=== PATIENT | male | born 1990 | race American Indian/Alaskan Native ===

== ENCOUNTER 2020-03-07 23:19 | Emergency (ER) | payer SELFPAY ==
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
[2020-03-08 01:00] LABS: Basophils # (Auto) 0.1 K/mm3 (0.0-0.1); Eosinophils # (Auto) 0.1 K/mm3 (0.0-0.4); Eosinophils % (Auto) 1.4 % (0.0-4.3); Hematocrit 35.9 % (35.5-45.6); Hemoglobin 12.2 gm/dl (11.8-15.2); Lymphocytes # (Auto) 3.1 K/mm3 (1.2-5.4); Lymphocytes % (Auto) 34.2 % (13.4-35.0); Mean Corpuscular HGB Conc 34 % (32-34); Mean Corpuscular Volume 93 fl (84-94); Monocytes # (Auto) 0.9 K/mm3 (0.0-0.8); Monocytes % (Auto) 9.4 % (0.0-7.3); Platelet Count 168 K/mm3 (140-440); Red Blood Count 3.86 M/mm3 (3.65-5.03); Red Cell Distribution Width 13.6 % (13.2-15.2)
[2020-03-08 01:10] LABS: Bilirubin,Urine NEG (Negative); Blood,Urine NEG (Negative); Color,Urine Yellow (Yellow); Protein,Urine <15 mg/dL mg/dL (Negative); WBC,Urine < 1.0 /HPF (0.0-6.0)
[2020-03-08 01:13] LABS: BUN/Creatinine Ratio 18; Blood Urea Nitrogen 22 mg/dL (9-20); Hemolysis Index 10
[2020-03-08 01:18] LABS: Amphetamine Screen,Urine PRESUMPTIVE NEGATIVE; Benzodiazepines Screen,Urine PRESUMPTIVE NEGATIVE; Cannabinoid Screen,Urine PRESUMPTIVE NEGATIVE; Cocaine Screen,Urine PRESUMPTIVE NEGATIVE; Methadone Screen,Urine PRESUMPTIVE NEGATIVE; Opiate Screen,Urine PRESUMPTIVE NEGATIVE
[2020-03-08] MEDS ORDERED: HALOPERIDOL LACTATE 5 MG/1 ML INJ ONE (03:55)
[2020-03-08] MEDS ORDERED: diphenhydrAMINE 50 MG/ML VIAL ONE (03:55)
[2020-03-08] MEDS ORDERED: ZIPRASIDONE MESYLATE 20 MG VIAL IM ONE ×2 (03:56→04:28)
[2020-03-08] MEDS ORDERED: WATER FOR INJ Sterile (PF) 10 ML ONE (03:56)
[2020-03-08] MEDS ORDERED: diphenhydrAMINE 50 MG/ML VIAL IM ONE (04:28)
[2020-03-08] MEDS ORDERED: LORazepam 2 MG/ML VIAL IM ONE (04:30)
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
[2020-03-08 15:00] VITALS: BP 136/86
== END 2020-03-08 14:57 | disposition home or self-care (01) ==
LOC: EEVIPCON 23:19 → ED 23:19
DX: F23 Brief psychotic disorder (principal); R45.6 Violent behavior; F22 Delusional disorders; F17.200 Nicotine dependence, unspecified, uncomplicated; Z98.890 Other specified postprocedural states; Z79.899 Other long term (current) drug therapy
CPT/HCPCS: 36415; 80048; 80307; 81001; 85025; 96372; 99284; J1200; J1630; J2060; J3486; 80320; G0480